=== PATIENT | male | born 1940 | race Caucasian/White ===

== ENCOUNTER 2021-11-20 20:01 | Inpatient (IN) | payer MEDICARE, OTHER ==
[~2021-11-20] VITALS: Ht 177.8 cm; Wt 68.0 kg
--- NOTE | 2021-11-20 20:15 | NUR ---
TO ER BED 12. BIBRA 93 FROM HOME C/O GEN WEAKNESS PER FAMILY X 2 DAYS . PT TESTED COVID [place] 2 DAYS AGO BUT FAMILY IS POSITIVE. BREATHING IS EVEN AND NONLABORED. CONNECTED TO MONITOR. AWAITING MD NAVARRETE
--- NOTE | 2021-11-20 20:19 | NUR ---
MAGAZINE REPAIRER Phil MUSTAFA #20G S/L
--- NOTE | 2021-11-20 20:29 | NUR ---
COVID ANTIGEN SWAB COLLECTED AND SENT TO LAB
[2021-11-20] MEDS ORDERED: IV NS 0.9% 1,000 ML BAG IV ONE (20:30)
--- NOTE | 2021-11-20 20:51 | NUR ---
NO URINE OUTPUT AT THIS TIME; WILL F/U
--- NOTE | 2021-11-20 20:54 | NUR ---
PT'S DAUGHTER UPDATED REGARDING FATHER AND AWARE THAT HE IS GOING OT BE ADMITTED.
[2021-11-20 21:19] LABS: BASOPHILS % (AUTO) 0.4 % (0.0-2.0); EOSINOPHILS % (AUTO) 0.3 % (0.0-6.0); HEMATOCRIT 36 % (39-51); HEMOGLOBIN 12.1 g/dL (13.5-17.5); LYMPHOCYTES # (AUTO) 0.6 K/uL (0.8-4.8); LYMPHOCYTES % (AUTO) 19.2 % (20.0-44.0); MEAN CORPUSCULAR HGB CONC 33 g/dl (31.0-36.0); MEAN CORPUSCULAR VOLUME 87 fL (80-96); MONOCYTES # (AUTO) 0.6 K/uL (0.1-1.30); MONOCYTES % (AUTO) 16.9 % (2.0-12.0); NEUTROPHILS # (AUTO) 2.1 K/uL (1.8-8.9); NEUTROPHILS % (AUTO) 63.2 % (43.0-81.0); PLATELET COUNT (AUTO) 171 K/uL (150-450); RED BLOOD CELL COUNT(AUTO) 4.18 MIL/uL (4.5-6.0); WHITE BLOOD COUNT (AUTO) 3.4 K/uL (4.3-11.0)
[2021-11-20 21:49] LABS: ALANINE AMINOTRANSFERASE 9 U/L (12-78); ALBUMIN 3.2 g/dL (3.4-5.0); ALKALINE PHOSPHATASE 64 U/L (46-116); ASPARTATE AMINOTRANSFERASE 19 U/L (15-37); BILIRUBIN,DIRECT 0.1 mg/dL (0.0-0.2); BILIRUBIN,TOTAL 0.4 mg/dL (0.2-1.0); CALCIUM, SERUM 7.5 mg/dL (8.5-10.1); CARBON DIOXIDE 30 mmol/L (21-32); CHLORIDE 100 mmol/L (98-107); CREATININE 0.9 mg/dL (0.6-1.3); GLUCOSE 101 mg/dL (74-106); POTASSIUM 3.9 mmol/L (3.5-5.1); SODIUM SERUM 132 mmol/L (136-145); TOTAL PROTEIN, SERUM 6.4 g/dL (6.4-8.2); UREA NITROGEN, BLOOD 14 mg/dL (7-18)
[2021-11-20 22:11] LABS: BAND % (MANUAL) 2 % (0.0-5.0); LYMPHOCYTES % (MANUAL) 15 % (16-48); MONOCYTES % (MANUAL) 14 % (0-11.0); NEUTROPHILS % (MANUAL) 69 (42-76)
--- NOTE | 2021-11-20 22:50 | NUR ---
URINE SAMPLE COLLECTED AND SENT TO LAB
[2021-11-20] MEDS ORDERED: ALBUTEROL SULFATE 8 GM HFA.AER.AD IH PRN (23:00)
[2021-11-20] MEDS ORDERED: ACETAMINOPHEN 325 MG TABLET PO PRN (23:00)
[2021-11-20 23:45] LABS: BILIRUBIN,URINE NEGATIVE (NEGATIVE); COLOR,URINE YELLOW (YELLOW); LEUKOCYTE ESTERASE ,URINE NEGATIVE (NEGATIVE); NITRITE, URINE NEGATIVE (NEGATIVE); PH,URINE 5.5 (5.0-8.0); PROTEIN,URINE NEGATIVE (NEGATIVE); UGLUCOSE NEGATIVE (NEGATIVE); UROBILINOGEN,URINE 0.2 EU/dL (0.2)
--- NOTE | 2021-11-21 00:41 | NUR ---
JO ANN MCCANN CROSS CUT SAWYER AT PT'S BEDSIDE
--- NOTE | 2021-11-21 00:52 | NUR ---
BED 103
--- NOTE | 2021-11-21 01:19 | NUR ---
REPORT GIVEN TO MICHAEL DAVIS FOR [facility]
[2021-11-21 02:00] VITALS: BP 113/60
--- NOTE | 2021-11-21 02:00 | NUR ---
QUALITY ENGINEER NOTES ADMITTED A 81 Y/O MALE A/O X3 EMIRATI SPEAKING ABLE TO MAKE NEEDS KNOWN ADMITTED WITH DX OF COVID 19/ HYPOTENSION , PTS ON SITTER 1:1 D/T PTS KEPT GETTING OUT OF BED . ON ISOLATION PRECAUTION MAINTAIN AT ALL TIMES . PTS ON RIGHT AC g#20 IVF OF NS AT 90CC/HR INFUSING WELL .PTS NOTED WITH INTACT SKIN NKDA AND FULL CODE PTS ON R/A SATING 97% NO SOB NO DISTRESS NOTED ALL NEEDS ATTENDED TOO CALL LIGHT WITHIN REACH KEPT PTS CLEAN DRY AND COMFORTABLE .
--- NOTE | 2021-11-21 02:03 | NUR ---
PT TRANSFERRED TO [facility] VIA ACLS PROTOCOL. VSS. ALL BELONGINGS WITH PT.
--- NOTE | 2021-11-21 02:05 | NUR ---
NOTIFIED MERE (DAUGHTER) [phone] PT TRANSFERRED TO [facility]
[2021-11-21 04:00] VITALS: BP 96/63
[2021-11-21] MEDS: IV NS 0.9% 1,000 ML IV PRN ×2 (05:18→15:40)
[2021-11-21 06:06] LABS: BASOPHILS % (AUTO) 0.5 % (0.0-2.0); HEMATOCRIT 35 % (39-51); HEMOGLOBIN 11.6 g/dL (13.5-17.5); LYMPHOCYTES # (AUTO) 0.8 K/uL (0.8-4.8); LYMPHOCYTES % (AUTO) 28.1 % (20.0-44.0); MEAN CORPUSCULAR HGB CONC 33 g/dl (31.0-36.0); MEAN CORPUSCULAR VOLUME 88 fL (80-96); MONOCYTES # (AUTO) 0.5 K/uL (0.1-1.30); MONOCYTES % (AUTO) 18.9 % (2.0-12.0); NEUTROPHILS # (AUTO) 1.4 K/uL (1.8-8.9); NEUTROPHILS % (AUTO) 52.5 % (43.0-81.0); PLATELET COUNT (AUTO) 154 K/uL (150-450); WHITE BLOOD COUNT (AUTO) 2.7 K/uL (4.3-11.0)
[2021-11-21 06:20] LABS: ALANINE AMINOTRANSFERASE 21 U/L (12-78); ALBUMIN 2.9 g/dL (3.4-5.0); ALKALINE PHOSPHATASE 58 U/L (46-116); ASPARTATE AMINOTRANSFERASE 19 U/L (15-37); BILIRUBIN,TOTAL 0.3 mg/dL (0.2-1.0); CALCIUM, SERUM 7.8 mg/dL (8.5-10.1); CARBON DIOXIDE 25 mmol/L (21-32); CHLORIDE 101 mmol/L (98-107); CREATININE 0.9 mg/dL (0.6-1.3); GLUCOSE 114 mg/dL (74-106); POTASSIUM 3.6 mmol/L (3.5-5.1); SODIUM SERUM 134 mmol/L (136-145); TOTAL PROTEIN, SERUM 5.9 g/dL (6.4-8.2); UREA NITROGEN, BLOOD 13 mg/dL (7-18)
[2021-11-21 06:40] LABS: BACTERIA,URINE Few /HPF (None Seen); SQUAMOUS EPITHELIAL CELL,UR Few /HPF (None Seen)
--- NOTE | 2021-11-21 07:22 | NUR ---
ROUTING CLERK NOTES PTS REMAIN IN BED AWAKE ALERT AND RESPONSIVE , PTS KEPT GETTING OUT OF BED ORDER FOR SITTER , PRECAUTIONARY MEASURES MAINTAIN AT ALL TIMES ENDORSE TO MORNING SHIFT TO FOLLOW MEDICATION LIST FROM HOME ALL NEEDS ATTENDED TOO.V/S STABLE AFEBRILE.
--- NOTE | 2021-11-21 07:39 | NUR ---
PERSONNEL ASSISTANT NOTES PT IN BED ASLEEP, EASILY AROUSABLE. A/O X 3. ON RA. RADHA MIDLINE INFUSING NS AT 90ML/HR. TOLERATING WELL. AMBULATORY W/ SITTER, SAFETY MEASURES IN PLACE. CALL LIGHT WITHIN REACH. WILL CONTINUE PLAN OF CARE.
[2021-11-21 08:00] VITALS: BP 110/59
[2021-11-21] MEDS ORDERED: CLOP75TA15 PO (09:31)
[2021-11-21] MEDS ORDERED: CARB1TAB21 PO (09:31)
[2021-11-21] MEDS ORDERED: MAGN400T26 PO (09:31)
[2021-11-21] MEDS ORDERED: CARV6.252 PO (09:31)
[2021-11-21] MEDS ORDERED: ATOR20TA PO (09:31)
[2021-11-21] MEDS ORDERED: DONE10TA44 PO (09:31)
[2021-11-21] MEDS ORDERED: ICOS1CAP PO (09:31)
[2021-11-21] MEDS ORDERED: POTA10CA43 PO (09:31)
[2021-11-21] MEDS ORDERED: FURO20TA4 PO (09:31)
[2021-11-21] MEDS ORDERED: FLUT1BLS6 INH (09:31)
[2021-11-21] MEDS ORDERED: VORT10TA PO (09:31)
[2021-11-21] MEDS ORDERED: ASPI-1420 PO (09:31)
[2021-11-21] MEDS ORDERED: MEMA28CA5 PO (09:31)
[2021-11-21] MEDS ORDERED: GABA300C PO (09:31)
[2021-11-21 10:12] LABS: BAND % (MANUAL) 4 % (0.0-5.0); LYMPHOCYTES % (MANUAL) 27 % (16-48); NEUTROPHILS % (MANUAL) 53 (42-76)
[2021-11-21 10:13] LABS: MONOCYTES % (MANUAL) 16 % (0-11.0)
--- NOTE | 2021-11-21 10:37 | NUR ---
SPOKE WITH PT'S DAUGHTER. PT'S DAUGHTER DICTATED PT'S LIST OF MEDICINES. CALLED AND GAVE MED LIST TO MED RECON NURSE.
[2021-11-21] MEDS ORDERED: SACU1TAB7 PO (10:55)
[2021-11-21] MEDS ORDERED: AMAN100C16 PO (10:55)
[2021-11-21] MEDS ORDERED: FINA5TAB11 PO (10:55)
[2021-11-21] MEDS ORDERED: OMEG1CAP PO (10:55)
--- NOTE | 2021-11-21 11:54 | NUR ---
PATIENT HAS BEEN REMOVING HIS SALES FORCE DEVELOPER [address] TOSHA MONTALVO ORDERED TO D/C MONITOR
[2021-11-21 12:00] VITALS: BP 112/55
[2021-11-21] MEDS ORDERED: ENOXAPARIN SODIUM 40 MG/0.4 ML DISP.SYRIN SQ SCH (13:00)
[2021-11-21 16:00] VITALS: BP 113/53
--- NOTE | 2021-11-21 18:16 | NUR ---
REINFORCED CONCRETE INSPECTOR NOTES PT IN BED ASLEEP, EASILY AROUSABLE. A/O X 3. ON RA. TOLERATING WELL. RADHA MIDLINE REMOVED. CATHETER INTACT. PT IS AMBULATORY W/ SITTER, SAFETY MEASURES IN PLACE. CALL LIGHT WITHIN REACH. CM SPOKE WITH DAUGHTER. FAMILY DECIDED FOR PT TO GO AMA TONIGHT. EXPLAINED WHY PT NEEDS TO STAY IN THE HOSPITAL, STILL WANTS PT TO GO HOME. DISCHARGE PAPERS PREPARED. WILL ENDORSE TO NEXT NURSE TO DUTY.
--- NOTE | 2021-11-21 19:10 | NUR ---
RN NOTES RECEIVED REPORT FROM MORNING RN. PATIENT IN BED A/O X1 WITH PERIODS OF CONFUSION. NO SOB NO DISTRESS NOTED AT THIS TIME. ON ROOM AIR SATING 99%. SITTER AT OUTSIDE CHECKING THE PATIENT. ALL ISOLATION PRECAUTION RENDERED AT ALL TIMES. ALL SAFETY MEASURES IN PLACE AT ALL TIMES. HOB ELEVATED. BED ON LOWEST POSITION AND LOCKED. WILL CLOSELY MONITOR THE PATIENT.
[2021-11-21 20:00] VITALS: BP 110/55
--- NOTE | 2021-11-21 20:10 | NUR ---
RN NOTES DAUGHTER CAME IN AND SIGNS AMA. RISK AND BENEFITS EXPLAINED TO THE DAUGHTER. STILL INSISTING AMA. BELONGING LIST ACCOUNTED AND CHECKED AND SIGNED BY DAUGHTER. PATIENT REMAINS STABLE NO SIGNIFICANT CHANGES. WHEEL OUTSIDE BY THE STRAIGHTENING ROLL OPERATOR WITH DAUGHTER.
== END 2021-11-21 21:24 | disposition left against medical advice (07) | DRG 178 ==
LOC: ER 20:07 → TELE1 11-21 01:04 → MEDSG1 11-21 11:52
PROVIDERS: ADMIT Nurse Practitioner Acute Care
DX: U07.1 COVID-19 (principal); E46 Unspecified protein-calorie malnutrition; E87.1 Hypo-osmolality and hyponatremia; E83.51 Hypocalcemia; I10 Essential (primary) hypertension; E88.09 Other disorders of plasma-protein metabolism, not elsewhere classified; E86.0 Dehydration; I95.9 Hypotension, unspecified
CPT/HCPCS: 36415; 71045-TC; 80048-TC; 80053-TC; 80076-TC; 81001; 83605-TC; 84484-TC; 85025-TC; 85378-TC; 85730-TC; 86140-TC; 87040-TC; 87081-TC; 87086-TC; C9803; G0378; J1650; J7030

== ENCOUNTER 2023-11-25 00:41 | Inpatient (IN) | payer MEDICARE, OTHER ==
[~2023-11-25] VITALS: Ht 160 cm; Wt 68.5 kg
[~2023-11-25 00:41] MED LIST: AMAN100C16 PO; CARB1TAB21 PO; CLOP75TA15 PO; DONE10TA44 PO; FINA5TAB11 PO; MAGN400T26 PO; MEMA28CA5 PO; OMEG1CAP PO; SACU1TAB7 PO; VORT10TA PO
[2023-11-25 01:33] LABS: BASOPHILS % (AUTO) 0.7 % (0.0-2.0); EOSINOPHILS # (AUTO) 0.1 K/uL (0.0-0.7); EOSINOPHILS % (AUTO) 1.7 % (0.0-6.0); HEMATOCRIT 39 % (39-51); LYMPHOCYTES % (AUTO) 31.4 % (20.0-44.0); MEAN CORPUSCULAR HEMOGLOBIN 29 PG (26.0-33.0); MEAN CORPUSCULAR HGB CONC 34 g/dl (31.0-36.0); MEAN CORPUSCULAR VOLUME 86 fL (80-96); MONOCYTES # (AUTO) 0.6 K/uL (0.1-1.30); NEUTROPHILS # (AUTO) 3.6 K/uL (1.8-8.9); NEUTROPHILS % (AUTO) 56.2 % (43.0-81.0); PLATELET COUNT (AUTO) 192 K/uL (150-450); RED CELL DISTRIBUTION WIDTH 13.1 % (11.5-15.0); WHITE BLOOD COUNT (AUTO) 6.4 K/uL (4.3-11.0)
[2023-11-25 01:54] LABS: CARBON DIOXIDE 28 mmol/L (21-32); CHLORIDE 108 mmol/L (98-107); CREATININE 0.9 mg/dL (0.6-1.3); GLUCOSE 113 mg/dL (74-106); POTASSIUM 3.4 mmol/L (3.5-5.1); SODIUM SERUM 145 mmol/L (136-145); UREA NITROGEN, BLOOD 19 mg/dL (7-18)
[2023-11-25 02:00] LABS: ACETAMINOPHEN <10 ug/ml (10-30); ALANINE AMINOTRANSFERASE 19 U/L (12-78); ALBUMIN 3.1 g/dL (3.4-5.0); ALCOHOL, BLOOD < 3 mg/dL (0-10); ALKALINE PHOSPHATASE 69 U/L (46-116); ASPARTATE AMINOTRANSFERASE 6 U/L (15-37); BILIRUBIN,DIRECT 0.1 mg/dL (0.0-0.2); BILIRUBIN,TOTAL 0.5 mg/dL (0.2-1.0); SALICYLATE 0.2 mg/dL (2.8-20.0); TOTAL PROTEIN, SERUM 6.6 g/dL (6.4-8.2)
[2023-11-25] MEDS ORDERED: METO25TA4 PO (03:58)
[2023-11-25] MEDS ORDERED: VORT20TA PO (03:58)
[2023-11-25] MEDS ORDERED: SACU1TAB PO (03:58)
[2023-11-25] MEDS ORDERED: ROSU10TA2 PO (03:58)
[2023-11-25] MEDS ORDERED: RASA1TAB4 PO (03:58)
[2023-11-25 06:11] VITALS: BP 118/81; TEMP 98; O2SAT 100
[2023-11-25] MEDS: BLOOD SUGAR DIAGNOSTIC 1 EACH STRIP IN ONE (06:43)
[2023-11-25 07:49] LABS: CHOLESTEROL 151 mg/dL (<200); HDL CHOLESTEROL 78 mg/dL (40-60); LDL 59 mg/dL (0-99); TRIGLYCERIDES 55 mg/dL (30-150)
[2023-11-25 08:00] VITALS: BP 162/76; TEMP 97.7; O2SAT 97
[2023-11-25] MEDS: METOPROLOL SUCCINATE 25 MG TAB.SR.24H PO SCH (09:36)
[2023-11-25 09:53] LABS: ALANINE AMINOTRANSFERASE 22 U/L (12-78); ALBUMIN 3.3 g/dL (3.4-5.0); ALKALINE PHOSPHATASE 76 U/L (46-116); ASPARTATE AMINOTRANSFERASE 10 U/L (15-37); BILIRUBIN,TOTAL 0.5 mg/dL (0.2-1.0); CALCIUM, SERUM 8.7 mg/dL (8.5-10.1); CARBON DIOXIDE 27 mmol/L (21-32); CHLORIDE 106 mmol/L (98-107); CREATININE 0.7 mg/dL (0.6-1.3); GLUCOSE 93 mg/dL (74-106); POTASSIUM 3.6 mmol/L (3.5-5.1); SODIUM SERUM 142 mmol/L (136-145); TOTAL PROTEIN, SERUM 6.6 g/dL (6.4-8.2); UREA NITROGEN, BLOOD 19 mg/dL (7-18)
[2023-11-25] MEDS: POTASSIUM CHLORIDE 20 MEQ TAB.PRT.SR PO SCH (10:59)
[2023-11-25 16:00] VITALS: BP 127/62; TEMP 97.7; O2SAT 94
[2023-11-25] MEDS: SERTRALINE HCL 25 MG TABLET PO SCH (16:16)
[2023-11-25] MEDS: busPIRone 5 MG TABLET PO SCH (16:16)
[2023-11-25 16:27] LABS: APPEARANCE,URINE CLEAR (CLEAR); BILIRUBIN,URINE NEGATIVE (NEGATIVE); BLOOD, URINE 1+ Ery/uL (NEGATIVE); COLOR,URINE YELLOW (YELLOW); KETONES,URINE TRACE mg/dL (NEGATIVE); LEUKOCYTE ESTERASE ,URINE NEGATIVE (NEGATIVE); NITRITE, URINE NEGATIVE (NEGATIVE); PROTEIN,URINE NEGATIVE (NEGATIVE); UGLUCOSE NEGATIVE (NEGATIVE); UROBILINOGEN,URINE 0.2 EU/dL (0.2)
[2023-11-25 16:37] LABS: ADD URINE CULTURE NO; BACTERIA,URINE None seen /HPF (None Seen); WBC,URINE NONE SEEN /HPF (0-3)
[2023-11-25 16:38] LABS: MUCUS,URINE Moderate /LPF (None Seen)
[2023-11-25 16:53] LABS: AMPHETAMINE, URINE NEGATIVE (NEGATIVE); BARBITURATE, URINE NEGATIVE (NEGATIVE); BENZODIAZEPINE, URINE NEGATIVE (NEGATIVE); CANNABINOID, URINE NEGATIVE (NEGATIVE); COCCAINE, URINE NEGATIVE (NEGATIVE); OPIATE, URINE NEGATIVE (NEGATIVE); PHENCYCLIDINE SCREEN,URINE NEGATIVE (NEGATIVE)
[2023-11-25] MEDS: CARBIDOPA/LEVODOPA 25/100 MG 1 UDTAB PO SCH (17:17)
[2023-11-25] MEDS: AMANTADINE HCL 100 MG CAPSULE PO SCH (17:17)
[2023-11-25 20:00] VITALS: BP 128/69; TEMP 98.6; O2SAT 97
[2023-11-25] MEDS: MEMANTINE HCL 5 MG TABLET PO SCH (20:06)
[2023-11-25] MEDS ORDERED: TEMAZEPAM 7.5 MG CAPSULE PO PRN (22:00)
[2023-11-26] MEDS: LORAZEPAM 0.5 MG TABLET PO PRN (05:13)
[2023-11-26 07:32] LABS: CALCIUM, SERUM 8.5 mg/dL (8.5-10.1); CARBON DIOXIDE 27 mmol/L (21-32); CHLORIDE 109 mmol/L (98-107); CREATININE 0.6 mg/dL (0.6-1.3); GLUCOSE 93 mg/dL (74-106); POTASSIUM 3.5 mmol/L (3.5-5.1); SODIUM SERUM 143 mmol/L (136-145); UREA NITROGEN, BLOOD 13 mg/dL (7-18)
[2023-11-26 08:00] VITALS: BP 111/61; TEMP 98; O2SAT 96
[2023-11-26] MEDS ORDERED: METOPROLOL SUCCINATE 25 MG TAB.SR.24H PO SCH (09:00)
[2023-11-26] MEDS ORDERED: Medication Not On Formulary EA (Rasagiline Mesylate 0.5 MG) PO SCH (09:00)
[2023-11-26] MEDS ORDERED: Medication Not On Formulary EA (Omega-3 Fatty Acids/Fish Oil (Fish Oil 1,000 Mg Capsule) PO SCH (09:00)
[2023-11-26] MEDS: MAGNESIUM OXIDE 400 MG TABLET PO SCH (09:06)
[2023-11-26] MEDS: DONEPEZIL 5 MG TABLET PO SCH (09:07)
[2023-11-26] MEDS: ATORVASTATIN 40 MG TABLET PO SCH (09:07)
[2023-11-26] MEDS: FINASTERIDE (5 MG) 5 MG TABLET PO SCH (09:07)
[2023-11-26] MEDS: CLOPIDOGREL BISULFATE 75 MG TABLET PO SCH (09:12)
[2023-11-26] MEDS: SACUBITRIL/VALSARTAN 24/26MG TABLET PO SCH (09:17)
[2023-11-26] MEDS ORDERED: SERTRALINE HCL 25 MG TABLET PO SCH (18:30)
[2023-11-26 20:00] VITALS: BP 114/80; TEMP 97.8; O2SAT 99
[2023-11-27 08:00] VITALS: BP 115/68; TEMP 97.7; O2SAT 98
[2023-11-27 16:00] VITALS: BP 119/69; TEMP 98; O2SAT 100
[2023-11-27] MEDS: SERTRALINE HCL 50 MG TABLET PO SCH (16:23)
[2023-11-27 20:29] VITALS: BP 114/63; TEMP 98.3; O2SAT 100
[2023-11-28 08:52] VITALS: BP 123/64
== END 2023-11-28 14:53 | disposition home or self-care (01) | DRG 885 ==
LOC: ER 00:46 → GPS 04:04
PROVIDERS: ADMIT Psychiatry & Neurology Psychosomatic Medicine; ATTEND Nurse Practitioner Acute Care
DX: F39 Unspecified mood [affective] disorder (principal); F03.93 Unspecified dementia, unspecified severity, with mood disturbance; F03.911 Unspecified dementia, unspecified severity, with agitation; E44.1 Mild protein-calorie malnutrition; F29 Unspecified psychosis not due to a substance or known physiological condition; I10 Essential (primary) hypertension; F03.90 Unspecified dementia, unspecified severity, without behavioral disturbance, psychotic disturbance, mood disturbance, and anxiety; Z79.02 Long term (current) use of antithrombotics/antiplatelets; Z79.899 Other long term (current) drug therapy; E03.9 Hypothyroidism, unspecified; D63.8 Anemia in other chronic diseases classified elsewhere; N40.0 Benign prostatic hyperplasia without lower urinary tract symptoms; Z91.128 Patient's intentional underdosing of medication regimen for other reason; Z86.718 Personal history of other venous thrombosis and embolism; F32.A Depression, unspecified; E88.09 Other disorders of plasma-protein metabolism, not elsewhere classified; E78.5 Hyperlipidemia, unspecified; E86.0 Dehydration; R79.89 Other specified abnormal findings of blood chemistry; Z73.6 Limitation of activities due to disability; R53.1 Weakness
CPT/HCPCS: 36415; 80048-TC; 80053-TC; 80061-TC; 80076-TC; 81001; 82962-TC; 84443-TC; 85025-TC; 87081-TC; 87086-TC; G0480